=== PATIENT | female | born 1955 | race Two or more races ===

== ENCOUNTER 2019-09-10 00:44 | Inpatient (IN) | payer MEDICAID ==
[~2019-09-10] VITALS: Ht 162.6 cm; Wt 57.6 kg
[2019-09-10] VITALS (8 sets, daily range): BP systolic 131–224; BP diastolic 65–90
--- NOTE | 2019-09-10 01:00 | NUR ---
ED Nurse Note: Patient brought in by ambulance from home d/t intermittent chest pain lasting 2-3 weeks and per patient usually resolves on it's own but was unable to resolve tonight. Patient aao x 4 and ambulatory. Patient c/o headache 12/31. 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 no acute distress at this time.
[2019-09-10 01:31] LABS: BASOPHILS % (AUTO) 1.4 % (0.0-2.0); EOSINOPHILS % (AUTO) 4.1 % (0.0-3.0); HEMATOCRIT 36.8 % (37.0-47.0); HEMOGLOBIN 12.3 G/DL (12.0-16.0); LYMPHOCYTES % (AUTO) 25.3 % (20.0-45.0); MEAN CORPUSCULAR VOLUME 86 FL (80-99); MONOCYTES % (AUTO) 6.8 % (1.0-10.0); NEUTROPHILS % (AUTO) 62.4 % (45.0-75.0); PLATELET COUNT 374 K/UL (150-450); RED CELL DISTRIBUTION WIDTH 12.1 % (11.6-14.8); WHITE BLOOD COUNT 11.8 K/UL (4.8-10.8)
[2019-09-10 01:38] LABS: APPEARANCE,URINE CLEAR; BILIRUBIN, URINE NEGATIVE (NEGATIVE); COLOR,URINE PALE YELLOW; GLUCOSE, URINE (UA) 1+ (NEGATIVE); KETONES,URINE NEGATIVE (NEGATIVE); LEUKOCYTE ESTERASE ,URINE 1+ (NEGATIVE); NITRITE,URINE NEGATIVE (NEGATIVE); PH,URINE 8 (4.5-8.0); PROTEIN,URINE 3+ (NEGATIVE); UROBILINOGEN,URINE NORMAL MG/DL (0.0-1.0)
[2019-09-10 01:42] LABS: ANION GAP 10 mmol/L (5-15); BLOOD UREA NITROGEN 25 mg/dL (7-18); CALCIUM 9.6 MG/DL (8.5-10.1); CARBON DIOXIDE 29 MMOL/L (21-32); CHLORIDE 99 MMOL/L (98-107); POTASSIUM 4.1 MMOL/L (3.5-5.1); SODIUM 138 MMOL/L (136-145)
--- NOTE | 2019-09-10 01:47 | NUR ---
ED Nurse Note: Family at bedside
--- NOTE | 2019-09-10 01:54 | NUR ---
ED Nurse Note: X-ray at bedside
[2019-09-10 01:57] LABS: ALANINE AMINOTRANSFERASE 20 U/L (12-78); ALBUMIN/GLOBULIN RATIO 0.9 (1.0-2.7); ALKALINE PHOSPHATASE 114 U/L (46-116); ASPARTATE AMINO TRANSFERASE 14 U/L (15-37); BILIRUBIN,TOTAL 0.3 MG/DL (0.2-1.0); CKMB 1.4 NG/ML (0.0-3.6)
--- NOTE | 2019-09-10 02:04 | NUR ---
ED Nurse Note: patient ambulating to restroom to void accompanied by daughter.
--- NOTE | 2019-09-10 02:24 | Emergency Room Report ---
History of Present Illness General Chief Complaint: Chest Pain Source: Patient Present Illness HPI 64-year-old female who presents to emergency room chest pain, increased shortness of breath found to be hypertensive. Patient states that she is had a history of hypertension which was managed in [facility]. She went there 2 months prior was prescribed aspirin, furosemide. She finished her furosemide 1 month ago and has not followed up with anyone in the in the [place]. Patient states in the past that she has had a fluid collection in her left lungs that has required drainage. Patient states her pain is on the left side started at 11:30 PM, pressure-like sensation, nonradiating. Allergies: Coded Allergies: No Known Allergies (Unverified , 09/10/19) Patient History Last Menstrual Period: NA Nursing Documentation-PMH Past Medical History: No History, Except For Hx Hypertension: Yes Hx Diabetes: Yes Review of Systems Constitutional: Denies: chills, fever Respiratory: Reports: shortness of breath; Denies: cough Cardiovascular: Reports: chest pain; Denies: palpitations Gastrointestinal: Denies: diarrhea, vomiting Genitourinary: Denies: hematuria, pain Musculoskeletal: Denies: joint swelling Skin: Denies: rash, lesions Neurological: Denies: headache, dizziness Physical Exam Vital Signs Date Time Temp Pulse Resp B/P (MAP) Pulse Ox O2 Delivery O2 Flow Rate FiO2 09/10/19 00:31 98.8 98 18 227/107 (147) 98 Room Air Sp02 EP Interpretation: reviewed General Appearance: well appearing, no apparent distress, non-toxic Head: normocephalic, atraumatic Eyes: bilateral eye normal inspection ENT: hearing grossly normal, EOM grossly intact, moist mucus membranes Neck: supple Respiratory: lungs clear, no respiratory distress, no retraction, no accessory muscle use, no wheezing, rales - Bilateral bases, speaking full sentences Cardiovascular #1: regular rate, rhythm, normal capillary refill Cardiovascular #2: 2+ radial (R), 2+ radial (L) Gastrointestinal: soft, non-distended Rectal: deferred Musculoskeletal: moves extm spontaneously, no lower extremity edema Neurologic: grossly normal Psychiatric: mood/affect normal Skin: warm/dry, normal turgor Medical Decision Making Diagnostic Impression: Primary Impression: Hypertensive urgency Additional Impressions: Chest pain Congestive heart failure YOLANDA (acute kidney injury) ER Course 64-year-old female complains of hypertension, chest pain associated with shortness of breath. Patient uncontrolled management of blood pressure. Patient found to have rales on exam. Differential includes but is not limited to acute myocardial infarction, ACS, pleural effusion, congestive heart failure, hypertensive emergency, hypertensive urgency, intracranial hemorrhage, Given patient's elevated blood pressure will perform lab testing, CT head and chest x-ray. Given medication to help improve blood pressure. Laboratory Tests Test 09/10/19 00:52 09/10/19 01:00 Urine Color Pale yellow Urine Appearance Clear Urine pH 8 (4.5-8.0) Urine Specific [place] 1.010 (1.005-1.035) Urine Protein 3+ (NEGATIVE) H Urine Glucose (UA) 1+ (NEGATIVE) H Urine Ketones Negative (NEGATIVE) Urine Blood 2+ (NEGATIVE) H Urine Nitrite Negative (NEGATIVE) Urine Bilirubin Negative (NEGATIVE) Urine Urobilinogen Normal MG/DL (0.0-1.0) Urine Leukocyte Esterase 1+ (NEGATIVE) H Urine RBC 0-2 /HPF (0 - 2) Urine WBC 30-40 /HPF (0 - 2) H Urine Squamous Epithelial Cells Few /LPF (NONE/OCC) Urine Bacteria Few /HPF (NONE) White Blood Count 11.8 K/UL (4.8-10.8) H Red Blood Count 4.30 M/UL (4.20-5.40) Hemoglobin 12.3 G/DL (12.0-16.0) Hematocrit 36.8 % (37.0-47.0) L Mean Corpuscular Volume 86 FL (80-99) Mean Corpuscular Hemoglobin 28.7 PG (27.0-31.0) Mean Corpuscular Hemoglobin Concent 33.5 G/DL (32.0-36.0) Red Cell Distribution Width 12.1 % (11.6-14.8) Platelet Count 374 K/UL (150-450) Mean Platelet Volume 6.4 FL (6.5-10.1) L Neutrophils (%) (Auto) 62.4 % (45.0-75.0) Lymphocytes (%) (Auto) 25.3 % (20.0-45.0) Monocytes (%) (Auto) 6.8 % (1.0-10.0) Eosinophils (%) (Auto) 4.1 % (0.0-3.0) H Basophils (%) (Auto) 1.4 % (0.0-2.0) Sodium Level 138 MMOL/L (136-145) Potassium Level 4.1 MMOL/L (3.5-5.1) Chloride Level 99 MMOL/L (98-107) Carbon Dioxide Level 29 MMOL/L (21-32) Anion Gap 10 mmol/L (5-15) Blood Urea Nitrogen 25 mg/dL (7-18) H Creatinine 1.0 MG/DL (0.55-1.30) Estimate Glomerular Filtration Rate 55.5 mL/min (>60) Glucose Level 190 MG/DL (74-106) H Calcium Level 9.6 MG/DL (8.5-10.1) Total Bilirubin 0.3 MG/DL (0.2-1.0) Aspartate Amino Transferase (AST) 14 U/L (15-37) L Alanine Aminotransferase (ALT) 20 U/L (12-78) Alkaline Phosphatase 114 U/L (46-116) Creatine Kinase MB 1.4 NG/ML (0.0-3.6) Troponin I 0.019 ng/mL (0.000-0.056) Pro-B-Type Natriuretic Peptide 1397 pg/mL (0-125) H Total Protein 8.4 G/DL (6.4-8.2) H Albumin 4.0 G/DL (3.4-5.0) Globulin 4.4 g/dL Albumin/Globulin Ratio 0.9 (1.0-2.7) L Lab Results Impression Elevated WBC, elevated BUN over creatinine, elevated proBNP of 1300 Last Vital Signs Date Time Temp Pulse Resp B/P (MAP) Pulse Ox O2 Delivery O2 Flow Rate FiO2 09/10/19 01:00 98.8 93 25 224/85 99 Room Air Reevaluation Impression Discussed case with Dr. Trammell. Patient admitted to telemetry Disposition: ADMITTED INPATIENT Scripts Hydralazine Hcl* (HYDRALAZINE HCL*) 25 Mg Tablet 25 MG ORAL Q4H PRN for 30 Days, TAB Prov: Jatin Fish MD 09/10/19 Clonidine Hcl (CLONIDINE HCL) 0.1 Mg Tablet 0.1 MG ORAL EVERY 8 HOURS for 30 Days, TAB Prov: Jatin Fish MD 09/10/19 Jimbo Bhatia M.D. Sep 10, 2019:24
[2019-09-10] MEDS ORDERED: cloNIDine 0.2mg Tab ORAL ONE (02:30)
[2019-09-10] MEDS ORDERED: Labetalol 5mg/ml 20ml vial IV ONE (02:30)
--- NOTE | 2019-09-10 02:43 | NUR ---
ED Nurse Note: Patient taken to CT in stable condition
--- NOTE | 2019-09-10 02:55 | NUR ---
ED Nurse Note: Patient returned from CT in stable condition and placed back on ekg monitor tech.
[2019-09-10] MEDS ORDERED: Acetaminophen 650 MG SUPP RECTAL PRN (05:00)
--- NOTE | 2019-09-10 05:04 | NUR ---
ED Nurse Note: Report given to HARSH Li in telemetry.
--- NOTE | 2019-09-10 05:05 | NUR ---
ED Nurse Note: Patient transported via gurney on cardiac tech with 2 RNs in stable condition.
--- NOTE | 2019-09-10 05:25 | NUR ---
NURSE NOTES: Received report from Marisol HOUSE from ER. Pt came to the unit and ambulated to the bed with minimal assist. Family member is bedside. No acute distress noted . Pt denies any pain or discomfort. Denies taking any home meds. Belongings signed and documented. health services director placed: NSR. Oriented to the unit. Will contact MD Trammell for admission orders.
[2019-09-10] MEDS ORDERED: dilTIAZem HCl 25mg/5ml Inj IV PRN (07:15)
[2019-09-10] MEDS ORDERED: Albuterol/Ipratropium 3ml neb HHN PRN (07:15)
[2019-09-10] MEDS ORDERED: Enalaprilat 2.5mg/2ml Inj IV PRN (07:15)
[2019-09-10] MEDS ORDERED: Nitroglycerin Subl 0.4mg tab SL PRN (07:15)
[2019-09-10] MEDS ORDERED: Miralax 17gm pkt ORAL PRN (07:15)
--- NOTE | 2019-09-10 07:50 | NUR ---
HAND-OFF: Report given to Oanh HOUSE. Plan of care endorsed.
--- NOTE | 2019-09-10 08:27 | NUR ---
NURSE NOTES: Recvd pt. Pt is AOX4, awake and sitting in bed. Pt is on room air with no sign of sob or resp distress, no c/o pain. Iv site is c/d/i and locked. Bed in lowest position, call light within reach, will continue with plan of care
[2019-09-10] MEDS: Heparin 5000 units/ml inj SUBQ SCH ×2 (10:15→21:28)
--- NOTE | 2019-09-10 11:34 | NUR ---
CARDIOLOGY : JAMIA ASTORGA [id number] 211-2 Normal left ventricular chamber size, systolic function and wall motion . Left ventricular ejection fraction estimated to be 55-60 %. Mild left ventricular hypertrophy. No evidence of pericardial effusion. All other cardiac chamber sizes are within normal limits. Focal aortic valve sclerosis with adequate cusp excursion. Thickened mitral valve leaflets with normal excursion. Mitral annulus and aortic root calcification. Normal pulmonic valve structure. Normal tricuspid valve structure. IVC at size 2.0 cm without physiologic collapse. A color flow and spectral Doppler study was performed and revealed: Trace to mild aortic insufficiency. Mild mitral regurgitation. Mitral inflow indicates normal left ventricular diastolic function. Trace tricuspid regurgitation. Tricuspid systolic velocities suggests peak right ventricular systolic pressure of 32 mmHg. Trace pulmonic regurgitation.
--- NOTE | 2019-09-10 11:37 | Consultation ---
Consult Note Consult Note Asked to eval for high BP and management This is a 64-year-old female who lives at home presents with increased chest pain, shortness of breath, substernal. No radiation. No LOC. The patient came to [place], diagnosed to have hypertensive urgency, YOLANDA, acute on chronic CHF, and diabetes and admitted to telemetry for further care. Currently, calm in bed, sleepy. No complaint. REVIEW OF SYSTEMS: Slight chest pain. Slight shortness of breath. No nausea, vomiting, or diarrhea. PAST MEDICAL HISTORY: As mentioned include hypertension, diabetes, CHF, YOLANDA. Assessment/Plan Hypertensive Emergency Proteinuria ? UTI BP med adjustment 2D echo new series of labs ordered urine culture Rylan Loya MD Sep 10, 2019 11:37
[2019-09-10] MEDS ORDERED: CLONIDINE HCL0.1 MG ORAL (11:54)
[2019-09-10] MEDS ORDERED: HYDRALAZINE HCL25 M1 ORAL (11:54)
[2019-09-10] MEDS: Docusate 100mg cap ORAL SCH ×2 (13:00→18:00)
--- NOTE | 2019-09-10 15:37 | NUR ---
CASE MANAGEMENT:REVIEW 64 YR OLD FEMALE WALKED IN TO ER CC: CHEST PAIN. HEADACHE SI: HYPERTENSIVE URGENCY 98.7 98 18 227/107 98% ON RA WBC+11.8 GLUCOSE+190 TROPONIN(-) IS: IV LASIX ASA PO CLONIDINE PO IV LABETALOL CT HEAD CHEST XRAY : TO TELEMETRY
--- NOTE | 2019-09-10 18:00 | History and Physical Report ---
DATE OF ADMISSION: 09/10/2019 TIME SEEN: 2 p.m. CONSULTANTS: 1. Jatin Fish M.D. 2. Rylan Loya M.D. 3. Donell Quinones M.D. CHIEF COMPLAINT: Chest pain, shortness of breath. BRIEF HISTORY: This is a 64-year-old female who lives at home presents with increased chest pain, shortness of breath, substernal. No radiation. No LOC. The patient came to [place], diagnosed to have hypertensive urgency, YOLANDA, acute on chronic CHF, and diabetes and admitted to telemetry for further care. Currently, calm in bed, sleepy. No complaint. REVIEW OF SYSTEMS: Slight chest pain. Slight shortness of breath. No nausea, vomiting, or diarrhea. PAST MEDICAL HISTORY: As mentioned include hypertension, diabetes, CHF, YOLANDA. PAST SURGICAL HISTORY: None. ALLERGIES: Denies. SOCIAL HISTORY: No smoking. No alcohol. No intravenous drug abuse. FAMILY HISTORY: Noncontributory. PHYSICAL EXAMINATION: GENERAL: Lethargic in bed, sleepy, not talking much. VITAL SIGNS: Temperature 98 degrees, pulse 67, respirations 20, blood pressure 131/67. CARDIOVASCULAR: No murmurs. LUNGS: Poor exchange. ABDOMEN: Bowel sounds distant. EXTREMITIES: No cyanosis or edema. NEUROLOGIC: The patient moves all extremities, slightly weak. LABORATORY AND DIAGNOSTIC DATA: Labs at this time show white count 11.8, otherwise CBC is normal. BMP shows BUN 25 and glucose 190, otherwise normal. Troponin 0.019 and 0.011. BNP is 1397. MEDICATIONS: Include clonidine, , hydralazine, pantoprazole, heparin, albuterol, nitroglycerin, Zofran, temazepam, enalapril. ASSESSMENT: 1. Hypertensive urgency. 2. Diabetes. 3. YOLANDA. 4. Acute on chronic CHF. PLAN: 1. O2, pulmonary treatment. 2. Blood pressure control. 3. Blood sugar control. 4. Dietary followup. 5. Diurese. 6. PT, Dietary evaluation. 7. CBC, BMP in the morning. Dvaide Trammell D.O. DR: SONI JOB#: [id number] CC:
--- NOTE | 2019-09-10 19:30 | NUR ---
Received pt. resting on bed and in no distress. Alert and oriented with no c/o discomfort at this time. Made aware of her plan of care. Will continue to monitor pt. Call light in reach.
[2019-09-11] VITALS (7 sets, daily range): BP systolic 140–158; BP diastolic 60–88
--- NOTE | 2019-09-11 05:18 | NUR ---
HAND-OFF: Report given to Magi HOUSE.
--- NOTE | 2019-09-11 05:20 | NUR ---
NURSE NOTES: Received report from HARSH Douglas. pt. resting in bed and in no distress. Alert and oriented with no c/o discomfort at this time. Bed locked in lowest position, side rails x2. Will continue to monitor pt. Call light in reach.
--- NOTE | 2019-09-11 07:13 | NUR ---
HAND-OFF: Report given to HARSH Bond.
--- NOTE | 2019-09-11 07:14 | CDS Physician Query ---
Clarification is required for compliance, coding accuracy, and to reflect severity of illness for this patient Dear Dr. Davide Trammell D.O. Date: 09/11/2019 Music Executive/CDS Name: Viraj Miner This is a 64-year-old female who lives at home presents with increased chest pain, shortness of breath, substernal. No radiation. No LOC. The patient came to [place], diagnosed to have hypertensive urgency, YOLANDA, acute on chronic CHF, and diabetes and admitted to telemetry for further care. Currently, calm in bed, sleepy. No complaint. "Acute on chronic CHF" documented in H&P Please Clarify: Acuity [] Acute [] Chronic [] Acute on Chronic Type [] Systolic [] Diastolic [] Systolic & Diastolic (Combined) [] Other: Present on Admission: [] Yes [] No [] Clinically Undetermined Physician signature Date Please also document in your Progress Notes and/or Discharge Summary and indicate if the condition was present on admission. MARLAD
[2019-09-11 07:57] LABS: BASOPHILS % (AUTO) 1.3 % (0.0-2.0); EOSINOPHILS % (AUTO) 4.9 % (0.0-3.0); HEMATOCRIT 32.1 % (37.0-47.0); HEMOGLOBIN 10.7 G/DL (12.0-16.0); LYMPHOCYTES % (AUTO) 41.6 % (20.0-45.0); MEAN CORPUSCULAR VOLUME 86 FL (80-99); MONOCYTES % (AUTO) 7.2 % (1.0-10.0); PLATELET COUNT 321 K/UL (150-450); RED BLOOD COUNT 3.72 M/UL (4.20-5.40); RED CELL DISTRIBUTION WIDTH 12.2 % (11.6-14.8); WHITE BLOOD COUNT 9.2 K/UL (4.8-10.8)
--- NOTE | 2019-09-11 08:04 | NUR ---
NURSE NOTES: pt. sitting in bed having breakfast. Pt. AOx4 sammarinese speaker. Pt on cardiac monitor technician no signs of cardiac or respiratory distress. no complaints of pain at this time. Call light within reach. Bed is locked and in lowest position. Will continue to monitor pt and labs.
[2019-09-11 08:34] LABS: ALANINE AMINOTRANSFERASE 16 U/L (12-78); ALBUMIN 3.4 G/DL (3.4-5.0); ALBUMIN/GLOBULIN RATIO 0.9 (1.0-2.7); ALKALINE PHOSPHATASE 91 U/L (46-116); ANION GAP 6 mmol/L (5-15); ASPARTATE AMINO TRANSFERASE 12 U/L (15-37); BILIRUBIN,TOTAL 0.3 MG/DL (0.2-1.0); BLOOD UREA NITROGEN 31 mg/dL (7-18); CALCIUM 9.2 MG/DL (8.5-10.1); CARBON DIOXIDE 30 MMOL/L (21-32); CHLORIDE 102 MMOL/L (98-107); CHOLESTEROL 228 MG/DL (< 200); CREATININE 1.2 MG/DL (0.55-1.30); HDL CHOLESTEROL 37 MG/DL (40-60); PHOSPHORUS 4.4 MG/DL (2.5-4.9); POTASSIUM 3.8 MMOL/L (3.5-5.1); SODIUM 138 MMOL/L (136-145); TRIGLYCERIDES 226 MG/DL (30-150)
--- NOTE | 2019-09-11 09:15 | NUR ---
PT EVALUATION NOTE Patient seen for initial evaluation. Patient presents with generalized weakness and impaired balance which affects patient's ability to perform mobility tasks safely. Patient requires SBA for transfers and ambulation. Patient able to ambulate 80 ft however is unsteady at times and will benefit from use of assistive device for safety with ambulation. Patient will benefit from skilled inpatient PT intervention to address strength, balance and safety for improved level of functional mobility and to further assess for appropriate assistive device for ambulation. Recommend discharge home with home PT and family assistance once medically cleared by MD. Will assess for need for SPC vs FWW for ambulation. Addendum: 09/11/19 at 1013 by JOAQUÍN OBANDO PT Amended: Links added.
--- NOTE | 2019-09-11 09:22 | NUR ---
NURSE NOTES: Notified Dr. Trammell about pt latest lab values.
[2019-09-11] MEDS: Docusate 100mg cap ORAL SCH ×3 (10:26→18:00)
[2019-09-11] MEDS: Heparin 5000 units/ml inj SUBQ SCH ×2 (10:28→21:58)
--- NOTE | 2019-09-11 11:24 | NUR ---
CASE MANAGEMENT:REVIEW 09/11/19 SI: HYPERTENSIVE URGENCY ELEVATED TROPONIN. UTI 98.7 70 19 140/60 97% ON RA BUN+31 TROPONIN (+) 0.104 IS: CLONIDINE PO Q8HRS PROTONIX PO QD HEPARIN SQ Q12 IV CARDIZEM Q1HRS PRN : TELEMETRY STATUS DCP: FROM HOME
--- NOTE | 2019-09-11 14:26 | General Progress Note ---
Assessment/Plan Problem List: (1) Diabetes ICD Codes: E11.9 - Type 2 diabetes mellitus without complications SNOMED: 09327262 (2) CHF (congestive heart failure) ICD Codes: I50.9 - Heart failure, unspecified SNOMED: 31237174 (3) YOLANDA (acute kidney injury) ICD Codes: N17.9 - Acute kidney failure, unspecified SNOMED: 9877829, 13277209 (4) Hypertensive urgency ICD Codes: I16.0 - Hypertensive urgency SNOMED: 630953442 Status: unchanged Assessment/Plan: pt diet bp bs control cbc bmp in am dc plan Subjective Constitutional: Reports: weakness Allergies: Coded Allergies: No Known Allergies (Unverified , 09/10/19) All Systems: reviewed and negative except above Subjective calm in bed Objective Last 24 Hour Vital Signs Date Time Temp Pulse Resp B/P (MAP) Pulse Ox O2 Delivery O2 Flow Rate FiO2 09/11/19 12:00 62 09/11/19 09:03 66 20 97 Room Air 21 09/11/19 09:00 Room Air 09/11/19 08:10 98.7 70 19 140/60 (86) 97 09/11/19 08:00 64 09/11/19 06:16 158/84 09/11/19 04:00 63 09/11/19 04:00 97.9 66 18 155/74 (101) 97 09/11/19 00:43 98.6 65 16 154/78 (103) 98 09/10/19 21:59 159/90 09/10/19 21:00 Room Air 09/10/19 20:00 98.8 88 16 159/90 (113) 98 09/10/19 20:00 64 09/10/19 16:00 97.2 65 18 146/79 (101) 97 09/10/19 16:00 66 09/10/19 14:45 136/67 Intake and Output 09/10/19 09/11/19 19:00 07:00 Intake Total 260 ml Output Total 750 ml Balance -490 ml Intake Oral 260 ml Output Urine Total 750 ml # Voids 3 3 Laboratory Tests 09/11/19 06:24: White Blood Count 9.2, Red Blood Count 3.72L, Hemoglobin 10.7L, Hematocrit 32.1L , Mean Corpuscular Volume 86, Mean Corpuscular Hemoglobin 28.7, Mean Corpuscular Hemoglobin Concent 33.3, Red Cell Distribution Width 12.2, Platelet Count 321, Mean Platelet Volume 7.0, Neutrophils (%) (Auto) 45.0, Lymphocytes (% ) (Auto) 41.6, Monocytes (%) (Auto) 7.2, Eosinophils (%) (Auto) 4.9H, Basophils (%) (Auto) 1.3, Prothrombin Time 10.4, Prothromb Time International Ratio 1.0, Activated Partial Thromboplast Time 25, Sodium Level 138, Potassium Level 3.8, Chloride Level 102, Carbon Dioxide Level 30, Anion Gap 6, Blood Urea Nitrogen 31H, Creatinine 1.2, Estimat Glomerular Filtration Rate 45.0, Glucose Level 190H , Hemoglobin A1c 8.1H, Uric Acid 6.6, Calcium Level 9.2, Phosphorus Level 4.4, Magnesium Level 1.9, Total Bilirubin 0.3, Gamma Glutamyl Transpeptidase 70, Aspartate Amino Transf (AST/SGOT) 12L, Alanine Aminotransferase (ALT/SGPT) 16, Alkaline Phosphatase 91, Troponin I 0.104H, C-Reactive Protein, Quantitative 1.1H, Pro-B-Type Natriuretic Peptide 699H, Total Protein 7.1, Albumin 3.4, Globulin 3.7, Albumin/Globulin Ratio 0.9L, Triglycerides Level 226H, Cholesterol Level 228H, LDL Cholesterol 151H, HDL Cholesterol 37L, Cholesterol/ HDL Ratio 6.2H, Thyroid Stimulating Hormone (TSH) 4.702H Height (Feet): 5 Height (Inches): 4.00 Weight (Pounds): 127 General Appearance: alert EENT: normal ENT inspection Neck: normal alignment Cardiovascular: normal peripheral pulses, normal rate, regular rhythm Respiratory/Chest: chest wall non-tender, lungs clear, normal breath sounds Abdomen: normal bowel sounds, non tender, soft Extremities: normal inspection Edema: no edema noted Arm (L), no edema noted Arm (R), no edema noted Leg (L), no edema noted Leg (R), no edema noted Pedal (L), no edema noted Pedal (R), no edema noted Generalized Neurologic: responsive, motor weakness Skin: normal pigmentation, warm/dry Davide Trammell DO Sep 11, 2019 14:26
--- NOTE | 2019-09-11 16:41 | Nephrology Progress Note ---
Assessment/Plan Problem List: (1) Hypertensive urgency (2) Renal failure (ARF), acute on chronic (3) Diabetic nephropathy (4) Anemia Assessment Hypertensive Emergency Proteinuria ? UTI DM ? Nephropathy Anemia Plan BP med adjustment BS management 2D echo new series of labs ordered urine culture Subjective ROS Limited/Unobtainable: No Constitutional: Reports: malaise Objective Objective Last 24 Hour Vital Signs Date Time Temp Pulse Resp B/P (MAP) Pulse Ox O2 Delivery O2 Flow Rate FiO2 09/11/19 15:05 158/83 09/11/19 12:00 97.7 65 20 158/83 (108) 96 09/11/19 12:00 62 09/11/19 09:03 66 20 97 Room Air 21 09/11/19 09:00 Room Air 09/11/19 08:10 98.7 70 19 140/60 (86) 97 09/11/19 08:00 64 09/11/19 06:16 158/84 09/11/19 04:00 63 09/11/19 04:00 97.9 66 18 155/74 (101) 97 09/11/19 00:43 98.6 65 16 154/78 (103) 98 09/10/19 21:59 159/90 09/10/19 21:00 Room Air 09/10/19 20:00 98.8 88 16 159/90 (113) 98 09/10/19 20:00 64 Intake and Output 09/10/19 09/11/19 19:00 07:00 Intake Total 260 ml Output Total 750 ml Balance -490 ml Intake Oral 260 ml Output Urine Total 750 ml # Voids 3 3 Laboratory Tests 09/11/19 06:24: White Blood Count 9.2, Red Blood Count 3.72L, Hemoglobin 10.7L, Hematocrit 32.1L , Mean Corpuscular Volume 86, Mean Corpuscular Hemoglobin 28.7, Mean Corpuscular Hemoglobin Concent 33.3, Red Cell Distribution Width 12.2, Platelet Count 321, Mean Platelet Volume 7.0, Neutrophils (%) (Auto) 45.0, Lymphocytes (% ) (Auto) 41.6, Monocytes (%) (Auto) 7.2, Eosinophils (%) (Auto) 4.9H, Basophils (%) (Auto) 1.3, Prothrombin Time 10.4, Prothromb Time International Ratio 1.0, Activated Partial Thromboplast Time 25, Sodium Level 138, Potassium Level 3.8, Chloride Level 102, Carbon Dioxide Level 30, Anion Gap 6, Blood Urea Nitrogen 31H, Creatinine 1.2, Estimat Glomerular Filtration Rate 45.0, Glucose Level 190H , Hemoglobin A1c 8.1H, Uric Acid 6.6, Calcium Level 9.2, Phosphorus Level 4.4, Magnesium Level 1.9, Total Bilirubin 0.3, Gamma Glutamyl Transpeptidase 70, Aspartate Amino Transf (AST/SGOT) 12L, Alanine Aminotransferase (ALT/SGPT) 16, Alkaline Phosphatase 91, Troponin I 0.104H, C-Reactive Protein, Quantitative 1.1H, Pro-B-Type Natriuretic Peptide 699H, Total Protein 7.1, Albumin 3.4, Globulin 3.7, Albumin/Globulin Ratio 0.9L, Triglycerides Level 226H, Cholesterol Level 228H, LDL Cholesterol 151H, HDL Cholesterol 37L, Cholesterol/ HDL Ratio 6.2H, Thyroid Stimulating Hormone (TSH) 4.702H Height (Feet): 5 Height (Inches): 4.00 Weight (Pounds): 127 General Appearance: no apparent distress Cardiovascular: normal rate Respiratory/Chest: decreased breath sounds Abdomen: soft Rylan Loya MD Sep 11, 2019 16:41
--- NOTE | 2019-09-11 19:46 | NUR ---
NURSE NOTES: Received patient from HARSH Bond, patient in stable condition, AOx3, 4, denies pain, resting in bed, IV site on left AC g 20, asymptomatic, patent, ambulatory, bed low&locked, side rails upx2, call light within reach, will continue to monitor and reassess
--- NOTE | 2019-09-11 19:46 | NUR ---
HAND-OFF: Report given to Francy/HARSH.
--- NOTE | 2019-09-12 02:00 | NUR ---
NURSE NOTES: Patient complaining of dizziness. Denies pain, afebrile, O2 96%, BP 180/76 , Apresoline 25 mg given will continue to monitor
[2019-09-12 02:06] VITALS: BP 180/76
[2019-09-12] MEDS: HydrALAZINE 25mg tab ORAL PRN ×2 (02:11→06:59)
--- NOTE | 2019-09-12 03:09 | NUR ---
NURSE NOTES: Patient BP 185/88,called Dr. Quinones awaiting call back
--- NOTE | 2019-09-12 03:45 | NUR ---
NURSE NOTES: Called Dr. Quinones, left message , awaiting call back
[2019-09-12 04:00] VITALS: BP 169/76
--- NOTE | 2019-09-12 04:11 | NUR ---
NURSE NOTES: BP 169/76, will continue to monitor
[2019-09-12 06:10] VITALS: BP 182/88
--- NOTE | 2019-09-12 07:36 | NUR ---
HAND-OFF: Report given to HARSH Nolasco, patient in stable condition, plan of care endorsed.
[2019-09-12 07:39] LABS: BASOPHILS % (AUTO) 1.4 % (0.0-2.0); EOSINOPHILS % (AUTO) 3.9 % (0.0-3.0); HEMATOCRIT 30.7 % (37.0-47.0); HEMOGLOBIN 10.3 G/DL (12.0-16.0); LYMPHOCYTES % (AUTO) 36.2 % (20.0-45.0); MEAN CORPUSCULAR VOLUME 86 FL (80-99); MONOCYTES % (AUTO) 5.3 % (1.0-10.0); NEUTROPHILS % (AUTO) 53.3 % (45.0-75.0); PLATELET COUNT 311 K/UL (150-450); RED BLOOD COUNT 3.56 M/UL (4.20-5.40); RED CELL DISTRIBUTION WIDTH 12.3 % (11.6-14.8); WHITE BLOOD COUNT 9.7 K/UL (4.8-10.8)
--- NOTE | 2019-09-12 07:50 | NUR ---
NURSE NOTES: Patient received from Agnieszka Crystal RN. Patient stable AOx4 with no s/sx of ditress. RR even and unlabored. Side rails up x2, call light within reach, bed low and locked. Will continue to monitor.
[2019-09-12 08:00] VITALS: BP 164/74
[2019-09-12 08:06] LABS: ANION GAP 6 mmol/L (5-15); BLOOD UREA NITROGEN 27 mg/dL (7-18); CALCIUM 9.2 MG/DL (8.5-10.1); CARBON DIOXIDE 28 MMOL/L (21-32); CHLORIDE 102 MMOL/L (98-107); CREATININE 1.1 MG/DL (0.55-1.30); POTASSIUM 4.1 MMOL/L (3.5-5.1); SODIUM 136 MMOL/L (136-145)
--- NOTE | 2019-09-12 08:11 | Nephrology Progress Note ---
Assessment/Plan Problem List: (1) Hypertensive urgency (2) Renal failure (ARF), acute on chronic (3) Diabetic nephropathy (4) Anemia Assessment Hypertensive Emergency Proteinuria ? UTI DM ? Nephropathy Anemia Plan today's lab pending BP med adjustment BS management 2D echo new series of labs ordered urine culture Subjective ROS Limited/Unobtainable: No Constitutional: Reports: malaise Objective Objective Last 24 Hour Vital Signs Date Time Temp Pulse Resp B/P (MAP) Pulse Ox O2 Delivery O2 Flow Rate FiO2 09/12/19 07:43 60 18 97 Room Air 21 09/12/19 06:59 162/82 09/12/19 06:15 182/88 09/12/19 06:10 182/88 (119) 09/12/19 04:00 60 09/12/19 04:00 98.4 57 16 169/76 (107) 96 09/12/19 02:11 180/76 09/12/19 02:06 180/76 (110) 09/12/19 00:00 61 09/11/19 23:58 98.0 67 18 150/88 (108) 93 09/11/19 21:59 155/79 09/11/19 21:00 Room Air 09/11/19 20:00 65 09/11/19 20:00 98.0 63 18 153/86 (108) 93 09/11/19 19:51 62 20 96 Room Air 21 09/11/19 16:00 99.7 64 20 155/71 (99) 93 09/11/19 16:00 63 09/11/19 15:05 158/83 09/11/19 12:00 97.7 65 20 158/83 (108) 96 09/11/19 12:00 62 09/11/19 09:03 66 20 97 Room Air 21 09/11/19 09:00 Room Air Intake and Output 09/11/19 09/12/19 19:00 07:00 Intake Total 1050 ml 500 ml Balance 1050 ml 500 ml Intake Oral 1050 ml 500 ml # Voids 5 2 Laboratory Tests 09/12/19 05:35: White Blood Count 9.7, Red Blood Count 3.56L, Hemoglobin 10.3L, Hematocrit 30.7L , Mean Corpuscular Volume 86, Mean Corpuscular Hemoglobin 28.8, Mean Corpuscular Hemoglobin Concent 33.4, Red Cell Distribution Width 12.3, Platelet Count 311, Mean Platelet Volume 7.0, Neutrophils (%) (Auto) 53.3, Lymphocytes (% ) (Auto) 36.2, Monocytes (%) (Auto) 5.3, Eosinophils (%) (Auto) 3.9H, Basophils (%) (Auto) 1.4, Sodium Level [Pending], Potassium Level [Pending], Chloride Level [Pending], Carbon Dioxide Level [Pending], Blood Urea Nitrogen [Pending], Creatinine [Pending], Estimat Glomerular Filtration Rate [Pending], Glucose Level [Pending], Calcium Level [Pending], Troponin I [Pending] Height (Feet): 5 Height (Inches): 4.00 Weight (Pounds): 127 General Appearance: no apparent distress Objective no change Rylan Loya MD Sep 12, 2019 08:11
--- NOTE | 2019-09-12 08:40 | General Progress Note ---
Assessment/Plan Problem List: (1) Diabetes ICD Codes: E11.9 - Type 2 diabetes mellitus without complications SNOMED: 15055853 (2) CHF (congestive heart failure) ICD Codes: I50.9 - Heart failure, unspecified SNOMED: 95315703 (3) YOLANDA (acute kidney injury) ICD Codes: N17.9 - Acute kidney failure, unspecified SNOMED: 6948942, 17121704 (4) Hypertensive urgency ICD Codes: I16.0 - Hypertensive urgency SNOMED: 076859017 Status: stable, progressing, unchanged Assessment/Plan: pt diet bp bs control dc if clear Subjective Constitutional: Reports: weakness Allergies: Coded Allergies: No Known Allergies (Unverified , 09/10/19) All Systems: reviewed and negative except above Subjective calm in bed Objective Last 24 Hour Vital Signs Date Time Temp Pulse Resp B/P (MAP) Pulse Ox O2 Delivery O2 Flow Rate FiO2 09/12/19 07:43 60 18 97 Room Air 21 09/12/19 06:59 162/82 09/12/19 06:15 182/88 09/12/19 06:10 182/88 (119) 09/12/19 04:00 60 09/12/19 04:00 98.4 57 16 169/76 (107) 96 09/12/19 02:11 180/76 09/12/19 02:06 180/76 (110) 09/12/19 00:00 61 09/11/19 23:58 98.0 67 18 150/88 (108) 93 09/11/19 21:59 155/79 09/11/19 21:00 Room Air 09/11/19 20:00 65 09/11/19 20:00 98.0 63 18 153/86 (108) 93 09/11/19 19:51 62 20 96 Room Air 21 09/11/19 16:00 99.7 64 20 155/71 (99) 93 09/11/19 16:00 63 09/11/19 15:05 158/83 09/11/19 12:00 97.7 65 20 158/83 (108) 96 09/11/19 12:00 62 09/11/19 09:03 66 20 97 Room Air 21 09/11/19 09:00 Room Air Intake and Output 09/11/19 09/12/19 19:00 07:00 Intake Total 1050 ml 500 ml Balance 1050 ml 500 ml Intake Oral 1050 ml 500 ml # Voids 5 2 Laboratory Tests 09/12/19 05:35: White Blood Count 9.7, Red Blood Count 3.56L, Hemoglobin 10.3L, Hematocrit 30.7L , Mean Corpuscular Volume 86, Mean Corpuscular Hemoglobin 28.8, Mean Corpuscular Hemoglobin Concent 33.4, Red Cell Distribution Width 12.3, Platelet Count 311, Mean Platelet Volume 7.0, Neutrophils (%) (Auto) 53.3, Lymphocytes (% ) (Auto) 36.2, Monocytes (%) (Auto) 5.3, Eosinophils (%) (Auto) 3.9H, Basophils (%) (Auto) 1.4, Sodium Level 136, Potassium Level 4.1, Chloride Level 102, Carbon Dioxide Level 28, Anion Gap 6, Blood Urea Nitrogen 27H, Creatinine 1.1, Estimat Glomerular Filtration Rate 49.7, Glucose Level 236H, Calcium Level 9.2, Troponin I 0.034 Height (Feet): 5 Height (Inches): 4.00 Weight (Pounds): 127 General Appearance: lethargic EENT: normal ENT inspection Neck: normal alignment Cardiovascular: normal peripheral pulses, normal rate, regular rhythm Respiratory/Chest: chest wall non-tender, lungs clear, normal breath sounds Abdomen: normal bowel sounds, non tender, soft Extremities: normal inspection Edema: no edema noted Arm (L), no edema noted Arm (R), no edema noted Leg (L), no edema noted Leg (R), no edema noted Pedal (L), no edema noted Pedal (R), no edema noted Generalized Neurologic: responsive, motor weakness Skin: normal pigmentation, warm/dry Davide Trammell DO Sep 12, 2019 08:40
[2019-09-12] MEDS ORDERED: Hyzaar 50-12.5mg tab ORAL SCH (09:00)
[2019-09-12] MEDS: Docusate 100mg cap ORAL SCH ×2 (09:23→13:31)
[2019-09-12] MEDS: Heparin 5000 units/ml inj SUBQ SCH (09:24)
[2019-09-12 12:00] VITALS: BP 152/67
[2019-09-12 13:31] VITALS: BP 152/67
[2019-09-12] MEDS ORDERED: HydrALAZINE 25mg tab ORAL SCH (14:00)
--- NOTE | 2019-09-12 14:40 | NUR ---
NURSE NOTES: Patient stable. Discharge paperwork given. Medications reviewed and explained new prescriptions along with side effects. Patient verbalized understanding and was able to give side effects for her medications. Discharged with walker per PT recommendation. Per Dr. Trammell can also be discharged with home health which will be arranged by case management. IV d/ch, monitor taken off. Patient walked down to private vehicle with family.
--- NOTE | 2019-09-13 10:40 | NUR ---
CASE MANAGEMENT: CM review and clinical information (face sheet/ H&P/ER MD notes/DC summary) faxed to [facility] @ [phone]. NATALY# [id number] and MARCELLE @ [phone].
--- NOTE | 2019-09-15 09:19 | Discharge Summary ---
Discharge Summary Discharge Summary _ DATE OF ADMISSION: 09/10/2019 DATE OF DISCHARGE: 09/12/2019 DISCHARGED BY: Dr. Trammell REASON FOR ADMISSION: 64 years old female with past medical history of hypertension, diabetes mellitus , presented to emergency room complaining of shortness of breath , chest pain . Patient was found to be severely hypertensive with blood pressure 227/107. Pulse oximetry was stable on room air. Troponin was 0.019 proBNP 1397. Laboratory work-up revealed mild leukocytosis WBC 11.8, stable hemoglobin and hematocrit. BUN 25 , creatinine 1.0. Glucose 190. Stable LFT. Patient was found to have rales on exam. Patient subsequently admitted to telemetry floor for further management. CONSULTANTS: french polisher Dr. Loya [facility] COURSE: Patient admitted to telemetry floor. Echocardiogram revealed preserved ejection fraction One troponin minimally elevated -0.104, other troponin negative. EKG revealed sinus bradycardia . Telemetry showed sinus rhythm , no evidenced of acute ischemic changes or significant arrhythmia . Patient was ruled out for acute myocardial infarction. Antihypertensive medication regimen was optimized as per french polisher. Blood pressure was managed with multiply antihypertensive medications, including clonidine, losartan , hydrochlorothiazide , amlodipine and hydralazine. Blood pressure improved significantly. Echocardiogram revealed preserved ejection fraction 55 to 60% with mild left ventricular hypertrophy. No evidence of wall motion abnormality. Right ventricular systolic pressure of 32. Patient received one dose of Lasix in ED. Pro BNP prior to discharge down to 699 from initial 1397. Lipid panel revealed mixed hyperlipidemia. Patietn was reluctant to start statin. Patient was educated on low fat low cholesterol diet. Supplemental oxygen titrated to keep pulse oximetry above 92%. Pulse oximetry was stable on room air. DVT and GI prophylaxis provided. Blood sugar was managed with sliding scale of insulin. Hemoglobin A1c 8.1. Patient will need further optimization of anti-glycemic regimen as outpatient . Hemoglobin and hematocrit were closely monitored with goal to keep hemoglobin above 7 . Prior to discharge hemoglobin 10.3 , hematocrit 30.7. Renal parameters and electrolytes were closely monitored, and nephrotoxic's were avoided. Urinalysis revealed evidence of proteinuria with +3 protein, likely due to diabetic nephropathy. Urine culture revealed E. coli . Patient did not have any urinary complaints , likely asymptomatic bacteriuria Initial mild leukocytosis resolved the next day, patient remained afebrile. Leukocytosis was likely reactive . Patient clinically stabilized and was ready for discharge home with home health services. FINAL DIAGNOSES: Hypertensive urgency -resolved Acute on chronic renal failure Acute on chronic CHF Mixed hyperlipidemia Diabetic nephropathy Anemia Proteinuria DISCHARGE MEDICATIONS: See Medication Reconciliation list. DISCHARGE INSTRUCTIONS: Patient was discharged home with home health services. Follow-up with a primary care provider in 1 week. I have been assigned to dictate discharge summary for this account. I was not involved in the patient's management. Rhonda Cortez NP Sep 15, 2019 09:19
--- NOTE | 2019-09-25 08:52 | Coder Physician Query ---
Dear Mike SloanO. Date: 09/11/2019 Tieing Machine Operator/CDS Name: Viraj Miner This is a 64-year-old female who lives at home presents with increased chest pain, shortness of breath, substernal. No radiation. No LOC. The patient came to [place], diagnosed to have hypertensive urgency, YOLANDA, acute on chronic CHF, and diabetes and admitted to telemetry for further care. Currently, calm in bed, sleepy. No complaint. "Acute on chronic CHF" documented in H&P Please Clarify: Acuity [] Acute [] Chronic [] Acute on Chronic Type [] Systolic [] Diastolic [] Systolic & Diastolic (Combined) [] Other: Present on Admission: [] Yes [] No [] Clinically Undetermined Physician signature Date Please also document in your Progress Notes and/or Discharge Summary and indicate if the condition was present on admission. NERY
--- NOTE | 2019-09-28 15:03 | Coder Physician Query ---
Clarification is required for compliance, coding accuracy, and to reflect severity of illness for this patient Dear Davide Trammell D.O. Date: 09/28/2019 Demand Inspector/CDS Name: Viraj Miner This is a 64-year-old female who lives at home presents with increased chest pain, shortness of breath, substernal. No radiation. No LOC. The patient came to [place], diagnosed to have hypertensive urgency, YOLANDA, acute on chronic CHF, and diabetes and admitted to telemetry for further care. Currently, calm in bed, sleepy. No complaint. Troponin 0.019 and 0.011. BNP is 1397. EF: 55-60% "Acute on chronic CHF" documented in H&P Please Clarify the type of CHF: Type [] Systolic [] Diastolic [] Systolic & Diastolic (Combined) [] Other: Present on Admission: [] Yes [] No [] Clinically Undetermined Physician signature Date Please also document in your Progress Notes and/or Discharge Summary and indicate if the condition was present on admission. MTDD
== END 2019-09-12 14:40 | disposition home health service (06) | DRG 304 ==
LOC: EDBD 00:44 → EMR 01:30 → 2E 04:19 → EDBEDREQ 04:48
DX: I16.0 Hypertensive urgency (principal); I50.43 Acute on chronic combined systolic (congestive) and diastolic (congestive) heart failure; N17.9 Acute kidney failure, unspecified; R07.9 Chest pain, unspecified; I13.0 Hypertensive heart and chronic kidney disease with heart failure and stage 1 through stage 4 chronic kidney disease, or unspecified chronic kidney disease; E11.21 Type 2 diabetes mellitus with diabetic nephropathy; E11.22 Type 2 diabetes mellitus with diabetic chronic kidney disease; N18.9 Chronic kidney disease, unspecified; D64.9 Anemia, unspecified; E78.2 Mixed hyperlipidemia; R80.9 Proteinuria, unspecified
CPT/HCPCS: 36415; 70450; 71045; 80048; 80053; 80061; 81003; 82553; 82962; 82977; 83036; 83735; 83880; 84100; 84443; 84484; 84550; 85025; 85610; 85730; 86140; 87086; 87181; 93005; 93306; 94664; 96374; 96375; 99285